=== PATIENT | male | born 1985 | race Caucasian/White ===

== ENCOUNTER 2017-08-06 08:06 | Emergency (ER) | payer OTHER ==
[~2017-08-06] VITALS: Ht 188 cm; Wt 91.0 kg
[2017-08-06] MEDS ORDERED: OMEPRAZOLE10 MG PO (08:21)
[2017-08-06] MEDS ORDERED: ALFUZOSIN HCL E10 MG PO (08:21)
[2017-08-06] MEDS ORDERED: METHYLPRED4 MG PO (08:22)
[2017-08-06 09:15] LABS: ALKALINE PHOSPHATASE 72 u/l (38-126); ANION GAP 18 (6-22 (CALC)); BUN 14 mg/dL (9-20); BUN/CREATININE RATIO 17 (12-20 (CALC)); CALCIUM 9.7 mg/dL (8.4-10.2); CARBON DIOXIDE 26 mmol/l (22-30); CHLORIDE 105 mmol/l (95-108); CREATININE 0.8 mg/dL (0.7-1.3); GFR > 60 ML/MIN (>=60 (CALC)); GFR FOR AFR.AMER. > 60 ML/MIN (>=60 (CALC)); GLUCOSE 101 mg/dL (75-110); LIPASE 60 u/l (23-300); SGOT/AST 30 u/l (17-59); SGPT/ALT 60 u/l (21-72); SODIUM 144 mmol/l (137-146); TOTAL PROTEIN 7.5 g/dL (6.3-8.2)
[2017-08-06 09:17] LABS: URINE BILIRUBIN - DIPSTICK NEGATIVE (NEGATIVE); URINE BLOOD DIPSTICK NEGATIVE (NEGATIVE); URINE CLARITY CLEAR; URINE COLOR YELLOW; URINE GLUCOSE - DIPSTICK NEGATIVE (NEGATIVE); URINE KETONE NEGATIVE (NEGATIVE); URINE LEUK ESTERASE NEGATIVE (NEGATIVE); URINE NITRITE - DIPSTICK NEGATIVE (Negative); URINE PH 5.5 (4.5-8.0); URINE PROTEIN - DIPSTICK NEGATIVE (NEG-TRACE); URINE UROBILINOGEN - DIPSTICK 0.2 E.U./dL (0.2)
[2017-08-06 09:17] LABS: HEMATOCRIT 45.3 % (39.0-50.0); HEMOGLOBIN 15.8 g/dl (14.0-18.0); IMMATURE GRANULOCYTES 0.3 % (0.0-1.0); MEAN CELL VOLUME 88.6 fL CALC (80.0-100.0); MEAN CORPUSCULAR HGB 30.9 pG CALC (26.0-32.0); MEAN CORPUSCULAR HGB CONC 34.9 g/L CALC (32.0-36.0); NEUT# 5.3 thou/uL (1.82-7.42); RED BLOOD COUNT 5.11 mill/uL (4.70-6.10); RED CELL DISTRI WIDTH 12.4 % (11.5-15.5)
[2017-08-06] MEDS ORDERED: ZOFRAN4 M1 PO (11:41)
[2017-08-06 12:03] VITALS: BP 127/78
== END 2017-08-06 12:03 | disposition home or self-care (01) | DRG 392 ==
LOC: ED 08:06
PROVIDERS: Family Medicine
DX: K52.9 Noninfective gastroenteritis and colitis, unspecified (principal)
CPT/HCPCS: Q9967